=== PATIENT | male | born 1990 | race Caucasian/White ===

== ENCOUNTER 2023-01-25 16:13 | Emergency (ER) | payer SELFPAY ==
[2023-01-25 16:51] VITALS: BP 142/81; PULSE 88; RESP 18; TEMP 36.8; O2SAT 99
--- NOTE | 2023-01-25 16:51 | ED_ITS ---
HPI - General Adult General Chief complaint: Nausea/Vomiting/Diarrhea Stated complaint: sinus congestion,sore throat,vomiting Time Seen by Provider: 01/25/23 17:55 Source: patient Mode of arrival: ambulatory Limitations: no limitations History of Present Illness HPI narrative: Patient is a 32-year-old male presenting to the emergency department with complaint of subjective fevers, sore throat, nasal congestion and vomiting since yesterday. Denies any abdominal pain or diarrhea. Denies any chest pain or shortness of breath. Has used DayQuil for symptoms with temporary relief. Reports positive sick contacts. MD complaint: Sore throat, subjective fever Onset (ago): day(s) Quality: burning Pain Consistency: constant Relieving factors: medication Exacerbating factors: none Associated symptoms: fever/chills (Subjective) and nausea/vomiting Treatments prior to arrival: other (DayQuil) Related Data Allergies Allergy/AdvReac Type Severity Reaction Status Date / Time aspirin [ASA] Allergy Intermediate SWELLING Verified 01/25/23 16:50 ibuprofen [IBUPROFEN] Allergy Intermediate ORBITAL Verified 01/25/23 16:50 SWELLING Review of Systems Review of Systems: As per HPI. Yes all other systems are reviewed and are negative Constitutional: Constitutional: Reports as per HPI Physical Exam ED Vital Signs: Vital Signs - 24 hr 01/25/23 16:51 Temperature 98.3 F Pulse Rate 88 Respiratory Rate 18 Blood Pressure 142/81 H Pulse Oximetry 99 Oxygen Delivery Method Room Air BMI result Body Mass Index 30.0 Vital signs have been reviewed and appear to be correct. Blood pressure mildly elevated. Heart rate normal. Respiratory rate normal. Temperature normal. Oxygen saturation normal. Const General: cooperative, healthy appearing and no acute distress Orientation/consciousness: oriented to person, oriented to place, oriented to time and patient oriented x3 Limitations: no limitations HENMT Head: Yes normocephalic and Yes atraumatic Ears: external ears normal and TM's normal bilaterally General nose exam: Normal external nose present Face and sinus: Yes face symmetric Mouth: Normal oral and palatal mucosa present, oropharynx normal and moist mucous membranes Throat: Yes tonsils normal, Yes uvula midline, No uvular edema and Yes cobblestoning Eyes Pupils: Equal, round and reactive pupils present Neck Neck: Yes normal visual inspection and Yes supple Resp Effort & Inspection: normal respiratory effort and able to speak in complete sentences Auscultation: clear to auscultation bilaterally Cardio Rate: regular rate Rhythm: regular rhythm Heart sounds: S1 normal heart sound present and S2 normal heart sound present GI Palpation (GI): Soft to palpation and nontender Auscultation: normoactive bowel sounds General: Yes no CVA tenderness Back/Spine/Pelvis Back: no CVA tenderness Skin General skin exam: elasticity normal and turgor normal Neuro General: oriented to person, oriented to place, oriented to time, patient oriented x3, moves all extremities, no focal motor deficits and CN's II-XI intact bilaterally Cranial nerves: Yes Equal, round and reactive pupils present Cognition (Neuro): normal cognition Extrem General: Yes full ROM, Yes no pedal edema and Yes no calf tenderness Psych Mental Status: mental status grossly normal Affect: normal affect Thought process: Normal thought process present Course Course Course Narrative: RME- 32 year old male presents for evalaution of flu-like symptoms including cough, sore throat, vomiting and subjevtive fevers. Plan for viral swabs and strep test. Medical Decision Making Medical Decision Making [facility] Narrative: Patient is a 32-year-old male presenting to the emergency department with complaint of subjective fevers, sore throat, nasal congestion and vomiting since yesterday. On exam patient is awake, A+Ox3, VS WNL, afebrile, normal neurological exam without focal deficits, physical exam findings as above. Given reported symptoms and physical exam findings, initial differential includes strep pharyngitis, COVID, influenza, other viral illness. Flu swab positive for influenza B. Patient updated on results and all questions answered. Offered treatment with Tamiflu which patient declined. Discussed with patient that he should isolate at home for the next 4 days and continue to wear mask while symptomatic after that. Instructed patient to follow-up with primary care provider, alternate Tylenol and ibuprofen as needed for discomfort and fever, ensure adequate fluid intake and rest. Return precautions discussed at bedside. Patient verbalized understanding of and agreement with plan. Differential Diagnosis Differential Diagnoses: The differential diagnosis associated with the presentation includes As per MDM. Lab Data [facility] Lab Attestation statement: I reviewed the patient's lab results. As per MDM. Labs: Lab Results 01/25/23 Range/Units 17:11 COVID-19 (RISHI) Negative (Negative) COVID-19 Clin Com See Note Influenza Type A (MIKE) Negative (Negative) Influenza Type B (MIKE) Positive A (Negative) Influenza A & B Note See Note S. pyogenes GrpA MIKE Negative (Negative) External Record Review External record reviewed: Inpatient record, Office record and Outpatient record Prescription Management I considered prescription management with: Antiviral (Patient declined) Discharge Plan Discharge Clinical Impression: Influenza B Patient Disposition: Home, Self-Care Instructions: Influenza (DC) Additional Instructions: You were evaluated in the emergency department today for sore throat, congestion and vomiting. Your flu test was positive. You should isolate at home for another 4 days and continue to wear mask or symptomatic after that. You were offered treatment with Tamiflu which you declined. Your symptoms should resolve over time with rest and fluids. You can take 650 mg Tylenol or 600 mg ibuprofen every 6 hours as needed for fever or pain. Please follow-up with your primary care provider for any ongoing symptoms. Return to the emergency department if you develop worsening pain, fever not controlled with Tylenol and ibuprofen, chest pain, dizziness or lightheadedness, or any other concerning symptoms. Stand Alone Forms: Work/School Release
[2023-01-25 17:34] LABS: IDNOW Serial# 08D9AD1C; Strep A Nucleic Acid Negative (Negative)
[2023-01-25 17:43] LABS: COVID-19 Test Negative (Negative); IDNOW Serial# 55D5AD1C
[2023-01-25 17:52] LABS: IDNOW Serial# 08D9AD1C; Influenza A Negative (Negative); Influenza B2 Positive (Negative)
== END 2023-01-25 18:49 | disposition home or self-care (01) ==
LOC: HO.ED 18:22
PROVIDERS: Physician Assistant; Emergency Provider Internal Medicine
DX: J10.1 Influenza due to other identified influenza virus with other respiratory manifestations (principal); R11.2 Nausea with vomiting, unspecified; R50.9 Fever, unspecified; Z20.822 Contact with and (suspected) exposure to COVID-19; Z20.828 Contact with and (suspected) exposure to other viral communicable diseases
CPT/HCPCS: 87502; 87635; 87651; 99282; 99283